=== PATIENT | female | born 1950 | race Caucasian/White ===

== ENCOUNTER → 2021-09-07 09:10 | Outpatient (BNVA) | payer MEDICARE, OTHER, SELFPAY | PROVIDERS: Family Provider Internal Medicine; Visit Provider Internal Medicine | DX: E04.1 Nontoxic single thyroid nodule (principal); E78.5 Hyperlipidemia, unspecified; E11.9 Type 2 diabetes mellitus without complications; R63.4 Abnormal weight loss; R23.2 Flushing; R00.2 Palpitations; R19.7 Diarrhea, unspecified | CPT/HCPCS: 99204 ==

== ENCOUNTER 2022-03-08 08:33 | Outpatient (CLI) | payer MEDICARE, OTHER, SELFPAY ==
--- NOTE | 2022-03-08 09:15 | US_ITS ---
WS: [id number] THYROID ULTRASOUND HISTORY: Notice changes in thyroid COMPARISON: None available. Right lobe: 0.9 cm x 1.3 cm x 4.5 cm (w x ap x l). Volume: 2.7 cm3. Normal size thyroid gland. Colloid cyst in the mid gland measures 4 x 3 x 8 mm. No solid nodule or ec hogenic focus. No increased vascularity. Left lobe: cm x 1.1 cm x 3.8 cm (w x ap x l). Volume: 3.2 cm3. Normal size gland. Subcentimeter colloid cysts within the gland. No echogenic focus or solid nodule. Isthmus: 0.3 cm. Benign-appearing bilateral cervical chain lymph nodes. US/US thyroid [id number] IMPRESSION: 1. 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 2. No thyroid mass or echogenic focus.
== END 2022-03-08 08:34 | disposition home or self-care (01) ==
PROVIDERS: Family Provider Internal Medicine; Visit Provider Internal Medicine
DX: E04.1 Nontoxic single thyroid nodule (principal)
CPT/HCPCS: 76536